=== PATIENT | male | born 1955 | race Caucasian/White ===

== ENCOUNTER 2019-03-16 13:33 | Emergency (ER) | payer MEDICARE ==
[2019-03-16] MEDS ORDERED: ENOXAPARIN SODIUM SQ STA (13:53)
[2019-03-16] MEDS ORDERED: Sodium Chloride 0.9% 1000 ML 1,000 ML IV STA ×2 (13:53→14:34)
--- NOTE | 2019-03-16 14:08 | ERPHSYRPT ---
- History of Present Illness Time Seen by Provider: 03/16/19 14:02 Source: patient Exam Limitations: no limitations Patient Subjective Stated Complaint: Pt states "I have had problems with my legs for awhile but my left leg really really hurts." Triage Nursing Assessment: Pt presented alert and oriented X 3, skin pwd tp ambulates with an upright limp, slow gait, pt left leg is dry, dusky in color, has wounds on krishnamurthy and left foot, pt right leg dry cracking, pt arms dry and cracking. foul smell to pt left foot. Physician History: Pt states "I have had problems with my legs for awhile but my left leg really really hurts." patient has this problem for atleast last 2 years, had angioplasty for both lower extrimities Occurred: other (foe atleast 2 years) Severity of Pain-Max: moderate Severity of Pain-Current: moderate Lower Extremities Pain: leg: left (5x5 cms ulcer on krishnamurthy), 4th toe: left (ulcer on toe), 5th toe: left (ulcer on toe) Allergies/Adverse Reactions: No Known Drug Allergies Allergy (Verified 11/26/15 21:21) Home Medications: No Reportable Medications [No Reported Medications] 03/16/19 [History] Hx Tetanus, Diphtheria Vaccination/Date Given: No Hx Influenza Vaccination/Date Given: No Hx Pneumococcal Vaccination/Date Given: No Immunizations Up to Date: Yes - Review of Systems Constitutional: No Fever, No Chills Eyes: No Symptoms Ears, Nose, & Throat: No Symptoms Respiratory: No Cough, No Dyspnea Cardiac: No Chest Pain, No Edema, No Syncope Abdominal/Gastrointestinal: No Abdominal Pain, No Nausea, No Vomiting, No Diarrhea Genitourinary Symptoms: No Dysuria Musculoskeletal: No Back Pain, No Neck Pain Skin: Cellulitis, Other (foul smell from wound, black eschar on leg wound, ), No Rash Neurological: No Dizziness, No Focal Weakness, No Sensory Changes Psychological: No Symptoms Endocrine: No Symptoms Hematologic/Lymphatic: No Symptoms All Other Systems: Reviewed and Negative - Past Medical History Pertinent Past Medical History: Yes Neurological History: No Pertinent History ENT History: No Pertinent History Cardiac History: Coronary Artery Disease, High Cholesterol, Hypertension Respiratory History: No Pertinent History Endocrine Medical History: No Pertinent History Musculoskeletal History: No Pertinent History GI Medical History: No Pertinent History History: No Pertinent History Psycho-Social History: No Pertinent History Male Reproductive Disorders: No Pertinent History Other Medical History: left leg pain and occlusion july2015 - Past Surgical History Past Surgical History: Yes Other Surgical History: stent in left leg in july 2017 - Social History Smoking Status: Current every day smoker How long have you smoked: years Exposure to second hand smoke: Yes Drug Use: none Patient Lives Alone: No - Nursing Vital Signs Nursing Vital Signs: Initial Vital Signs Temperature 98.1 F 03/16/19 13:39 Pulse Rate 99 H 03/16/19 13:39 Respiratory Rate 03/16/19 13:39 Blood Pressure 174/101 03/16/19 13:39 O2 Sat by Pulse Oximetry 99 03/16/19 13:39 Pain Scale Pain Intensity 0 - Physical Exam General Appearance: alert Eyes, Ears, Nose, Throat Exam: moist mucous membranes Neck Exam: non-tender, supple Cardiovascular/Respiratory Exam: chest non-tender Gastrointestinal/Abdominal Exam: non-tender, guarding Back Exam: normal inspection, No vertebral tenderness Legs Exam: left leg: pain (at krishnamurthy ulcer site) Foot Exam: left foot: infection (4th and 5th toe), soft tissue tenderness Neuro/Tendon Exam: normal sensation, normal motor functions Mental Status Exam: alert, oriented x 3, cooperative Skin Exam: dry, other (foul smelling discharge, 5x5 cms on left krishnamurthy wound, ulcer on 4th and 5th toes left) SpO2: 99 - Course Nursing assessment & vital signs reviewed: Yes - Radiology Exams Chest X-ray Interpretation: Reviewed by me (COPD changes) Ordered Tests: Active Orders 24 hr Category Date Time Status Radiology Therapist STAT Care 03/16/19 13:54 Active EKG-ER Only STAT Care 03/16/19 13:53 Active IV Insertion STAT Care 03/16/19 14:16 Active NPO (ED) STAT Care 03/16/19 14:08 Active CHEST 1 VIEW (PORTABLE) Stat Exams 03/16/19 14:08 Taken BLOOD CULTURE Stat Lab 03/16/19 15:40 Received CBC W DIFF Stat Lab 03/16/19 14:10 Completed CK-Creatinine Phosphokinase Stat Lab 03/16/19 14:10 Completed CMP Stat Lab 03/16/19 14:10 Completed D-DIMER QUANTITATIVE Stat Lab 03/16/19 14:10 Completed Lactic Acid Stat Lab 03/16/19 13:53 Completed NT PRO BNP Stat Lab 03/16/19 14:10 Completed TROPONIN Q3H Lab 03/16/19 14:10 Completed TROPONIN Q3H Lab 03/16/19 17:00 Ordered TROPONIN Q3H Lab 03/16/19 20:00 Ordered TROPONIN Q3H Lab 03/16/19 23:00 Ordered TROPONIN Q3H Lab 03/17/19 02:00 Ordered UA W/RFX UR CULTURE Stat Lab 03/16/19 14:58 Completed Medication Summary Generic Name Dose Route Start Last Admin Trade Name Freq PRN Reason Stop Dose Admin Vancomycin HCl 1 gm in 250 mls @ 167 mls/hr 03/16/19 15:26 03/16/19 15:37 Vancomycin 1gm/ Ns 250ml IV 03/16/19 16:55 167 mls/hr STAT ONE Administration Discontinued Medications Generic Name Dose Route Start Last Admin Trade Name Freq PRN Reason Stop Dose Admin Enoxaparin Sodium 120 mg 03/16/19 13:53 03/16/19 14:17 Enoxaparin Sodium SQ 03/16/19 13:54 120 mg 1XONLY STA Administration Enoxaparin Sodium Confirm 03/16/19 14:16 Enoxaparin Sodium Administered 03/16/19 14:17 Dose 80 mg SQ .STK-MED ONE Enoxaparin Sodium Confirm 03/16/19 14:18 Enoxaparin Sodium Administered 03/16/19 14:19 Dose 80 mg SQ .STK-MED ONE Sodium Chloride 1,000 mls @ 999 mls/hr 03/16/19 13:53 03/16/19 15:03 Sodium Chloride 0.9% 1000 Ml IV 03/16/19 14:53 Infused .Q1H1M STA Infusion Sodium Chloride Confirm 03/16/19 14:16 Sodium Chloride 0.9% 1000 Ml Administered 03/16/19 14:17 Dose 1,000 mls @ ud .ROUTE .STK-MED ONE Sodium Chloride 1,000 mls @ 999 mls/hr 03/16/19 14:34 03/16/19 16:04 Sodium Chloride 0.9% 1000 Ml IV 03/16/19 15:34 Infused .Q1H1M STA Infusion Sodium Chloride Confirm 03/16/19 15:03 Sodium Chloride 0.9% 1000 Ml Administered 03/16/19 15:04 Dose 1,000 mls @ ud .ROUTE .STK-MED ONE Vancomycin HCl Confirm 03/16/19 15:36 Vancomycin 1gm/ Ns 250ml Administered 03/16/19 15:37 Dose 250 mls @ IV .K-MED ONE Lab/Rad Data: Laboratory Result Diagrams 03/16/19 14:10 03/16/19 14:10 Laboratory Results 03/16/19 03/16/19 03/16/19 Range/Units Unknown 14:58 14:10 WBC (4.0-10.5) K/mm3 RBC (4.1-5.6) M/mm3 Hgb (12.5-18.0) gm/dl Hct (42-50) % MCV (78-100) fl MCH (26-32) pg MCHC (32-36) g/dl RDW (11.5-14.0) % Plt Count (150-450) K/mm3 MPV (7.5-11.0) fl Gran % (36.0-66.0) % Eos # (Auto) (0-0.5) Absolute Lymphs (auto) (1.0-4.6) Absolute Monos (auto) (0.0-1.3) Lymphocytes % (24.0-44.0) % Monocytes % (0.0-12.0) % Eosinophils % (0.00-5.0) % Basophils % (0.0-0.4) % Absolute Granulocytes (1.4-6.9) Basophils # (0-0.4) D-Dimer (215-500) ng/mL Sodium (137-145) mmol/L Potassium (3.5-5.1) mmol/L Chloride (98-107) mmol/L Carbon Dioxide (22-30) mmol/L Anion Gap (5-15) MEQ/L BUN (9-20) mg/dL Creatinine (0.66-1.25) mg/dL Estimated GFR ML/MIN Glucose (74-106) mg/dL Hemoglobin A1c 5.49 (4.5-6.0) % Lactic Acid (0.4-2.0) Calcium (8.4-10.2) mg/dL Total Bilirubin (0.2-1.3) mg/dL AST (17-59) U/L ALT (0-50) U/L Alkaline Phosphatase (38-126) U/L Creatine Kinase (55-170) U/L Troponin I < 0.012 (0.000-0.034) ng/mL NT-Pro-B Natriuret Pep (0-900) pg/mL Serum Total Protein (6.3-8.2) g/dL Albumin (3.5-5.0) g/dL Urine Color YELLOW (YELLOW) Urine Appearance CLEAR (CLEAR) Urine pH 6.0 (5-6) Ur Specific Riddle 1.005 (1.005-1.025) Urine Protein NEGATIVE (Negative) Urine Ketones NEGATIVE (NEGATIVE) Urine Blood NEGATIVE (0-5) Dayday/ul Urine Nitrite NEGATIVE (NEGATIVE) Urine Bilirubin NEGATIVE (NEGATIVE) Urine Urobilinogen NEGATIVE (0-1) mg/dL Ur Leukocyte Esterase NEGATIVE (NEGATIVE) Urine WBC (Auto) NONE (0-5) /HPF Urine RBC (Auto) NONE (0-2) /HPF U Hyaline Cast (Auto) 0-2 (0-2) /LPF U Epithel Cells (Auto) NONE (FEW) /HPF Urine Bacteria (Auto) NONE (NEGATIVE) /HPF Urine Mucus (Auto) SLIGHT (NEGATIVE) /HPF Urine Culture Reflexed NO (NO) Urine Glucose 150 (NEGATIVE) mg/dL 03/16/19 03/16/19 03/16/19 Range/Units 14:10 14:10 14:10 WBC 9.7 (4.0-10.5) K/mm3 RBC 3.90 L (4.1-5.6) M/mm3 Hgb 14.1 (12.5-18.0) gm/dl Hct 40.3 L (42-50) % MCV 103.3 H (78-100) fl MCH 36.2 H (26-32) pg MCHC 35.0 (32-36) g/dl RDW 12.9 (11.5-14.0) % Plt Count 154 (150-450) K/mm3 MPV 10.6 (7.5-11.0) fl Gran % 69.4 H (36.0-66.0) % Eos # (Auto) 0.01 (0-0.5) Absolute Lymphs (auto) 1.99 (1.0-4.6) Absolute Monos (auto) 0.93 (0.0-1.3) Lymphocytes % 20.5 L (24.0-44.0) % Monocytes % 9.6 (0.0-12.0) % Eosinophils % 0.1 (0.00-5.0) % Basophils % 0.4 (0.0-0.4) % Absolute Granulocytes 6.76 (1.4-6.9) Basophils # 0.04 (0-0.4) D-Dimer 564 H* (215-500) ng/mL Sodium 136 L (137-145) mmol/L Potassium 3.5 (3.5-5.1) mmol/L Chloride 98 (98-107) mmol/L Carbon Dioxide 24 (22-30) mmol/L Anion Gap 17.3 H (5-15) MEQ/L BUN 14 (9-20) mg/dL Creatinine 0.64 L (0.66-1.25) mg/dL Estimated GFR > 60.0 ML/MIN Glucose 191 H (74-106) mg/dL Hemoglobin A1c (4.5-6.0) % Lactic Acid (0.4-2.0) Calcium 8.8 (8.4-10.2) mg/dL Total Bilirubin 0.80 (0.2-1.3) mg/dL AST 37 (17-59) U/L ALT 22 (0-50) U/L Alkaline Phosphatase 73 (38-126) U/L Creatine Kinase 130 (55-170) U/L Troponin I (0.000-0.034) ng/mL NT-Pro-B Natriuret Pep 403 (0-900) pg/mL Serum Total Protein 7.6 (6.3-8.2) g/dL Albumin 4.0 (3.5-5.0) g/dL Urine Color (YELLOW) Urine Appearance (CLEAR) Urine pH (5-6) Ur Specific Riddle (1.005-1.025) Urine Protein (Negative) Urine Ketones (NEGATIVE) Urine Blood (0-5) Dayday/ul Urine Nitrite (NEGATIVE) Urine Bilirubin (NEGATIVE) Urine Urobilinogen (0-1) mg/dL Ur Leukocyte Esterase (NEGATIVE) Urine WBC (Auto) (0-5) /HPF Urine RBC (Auto) (0-2) /HPF U Hyaline Cast (Auto) (0-2) /LPF U Epithel Cells (Auto) (FEW) /HPF Urine Bacteria (Auto) (NEGATIVE) /HPF Urine Mucus (Auto) (NEGATIVE) /HPF Urine Culture Reflexed (NO) Urine Glucose (NEGATIVE) mg/dL 03/16/19 Range/Units 13:53 WBC (4.0-10.5) K/mm3 RBC (4.1-5.6) M/mm3 Hgb (12.5-18.0) gm/dl Hct (42-50) % MCV (78-100) fl MCH (26-32) pg MCHC (32-36) g/dl RDW (11.5-14.0) % Plt Count (150-450) K/mm3 MPV (7.5-11.0) fl Gran % (36.0-66.0) % Eos # (Auto) (0-0.5) Absolute Lymphs (auto) (1.0-4.6) Absolute Monos (auto) (0.0-1.3) Lymphocytes % (24.0-44.0) % Monocytes % (0.0-12.0) % Eosinophils % (0.00-5.0) % Basophils % (0.0-0.4) % Absolute Granulocytes (1.4-6.9) Basophils # (0-0.4) D-Dimer (215-500) ng/mL Sodium (137-145) mmol/L Potassium (3.5-5.1) mmol/L Chloride (98-107) mmol/L Carbon Dioxide (22-30) mmol/L Anion Gap (5-15) MEQ/L BUN (9-20) mg/dL Creatinine (0.66-1.25) mg/dL Estimated GFR ML/MIN Glucose (74-106) mg/dL Hemoglobin A1c (4.5-6.0) % Lactic Acid 4.4 H (0.4-2.0) Calcium (8.4-10.2) mg/dL Total Bilirubin (0.2-1.3) mg/dL AST (17-59) U/L ALT (0-50) U/L Alkaline Phosphatase (38-126) U/L Creatine Kinase (55-170) U/L Troponin I (0.000-0.034) ng/mL NT-Pro-B Natriuret Pep (0-900) pg/mL Serum Total Protein (6.3-8.2) g/dL Albumin (3.5-5.0) g/dL Urine Color (YELLOW) Urine Appearance (CLEAR) Urine pH (5-6) Ur Specific Riddle (1.005-1.025) Urine Protein (Negative) Urine Ketones (NEGATIVE) Urine Blood (0-5) Dayday/ul Urine Nitrite (NEGATIVE) Urine Bilirubin (NEGATIVE) Urine Urobilinogen (0-1) mg/dL Ur Leukocyte Esterase (NEGATIVE) Urine WBC (Auto) (0-5) /HPF Urine RBC (Auto) (0-2) /HPF U Hyaline Cast (Auto) (0-2) /LPF U Epithel Cells (Auto) (FEW) /HPF Urine Bacteria (Auto) (NEGATIVE) /HPF Urine Mucus (Auto) (NEGATIVE) /HPF Urine Culture Reflexed (NO) Urine Glucose (NEGATIVE) mg/dL - Progress Progress: unchanged Discussed with .: Other ([facility] Hospitalist service. Dr ryan) Counseled pt/family regarding: lab results, diagnosis, need for follow-up, rad results, smoking cessation - Departure Departure Disposition: Transfer ([facility]) Clinical Impression: Peripheral vascular disease, Peripheral vascular disease of lower extremity with ulceration Condition: Stable Critical Care Time: Yes Critical Care Time(excluding separately billable procedures): Critical 30-74 mins Referrals: DOCTOR,NO FAMILY [Primary Care Provider] -
[2019-03-16] MEDS ORDERED: Sodium Chloride 0.9% 1000 ML 1,000 ML ONE ×2 (14:16→15:03)
[2019-03-16] MEDS ORDERED: ENOXAPARIN SODIUM SQ ONE ×2 (14:16→14:18)
[2019-03-16 14:35] LABS: Absolute Neutrophil Ct (ANC) 6.76 (1.4-6.9); BASOPHIL % 0.4 % (0.0-0.4); Basophil (Absolute #) 0.04 (0-0.4); Eosinophil % 0.1 % (0.00-5.0); Eosinophil (Absolute #) 0.01 (0-0.5); Hematocrit 40.3 % (42-50); Hemoglobin 14.1 gm/dl (12.5-18.0); Lymphocyte (Absolute #) 1.99 (1.0-4.6); Lymphocytes % 20.5 % (24.0-44.0); Mean Cell Volume 103.3 fl (78-100); Mean Corpuscular Hemoglobin 36.2 pg (26-32); Mean Platelet Volume 10.6 fl (7.5-11.0); Monocyte (Absolute #) 0.93 (0.0-1.3); Monocytes % 9.6 % (0.0-12.0); Neutrophil % 69.4 % (36.0-66.0); Platelet Count 154 K/mm3 (150-450); Red Cell Distribution Width 12.9 % (11.5-14.0); White Blood Count 9.7 K/mm3 (4.0-10.5)
[2019-03-16 14:48] LABS: ALKALINE PHOSPHATASE 73 U/L (38-126); ANION GAP 17.3 MEQ/L (5-15); BLOOD UREA NITROGEN 14 mg/dL (9-20); CHLORIDE 98 mmol/L (98-107); CK-Creatinine Phosphokinase 130 U/L (55-170); Calcium 8.8 mg/dL (8.4-10.2); Carbon Dioxide 24 mmol/L (22-30); Creatinine 1 0.64 mg/dL (0.66-1.25); Glucose 191 mg/dL (74-106); NT PRO BNP 403 pg/mL (0-900); Potassium 3.5 mmol/L (3.5-5.1); SGOT/AST 37 U/L (17-59); SGPT/ALT 22 U/L (0-50); SODIUM 136 mmol/L (137-145); Total Protein 7.6 g/dL (6.3-8.2)
[2019-03-16 15:18] LABS: Appearance CLEAR (CLEAR); Bilirubin NEGATIVE (NEGATIVE); Blood NEGATIVE Ery/ul (0-5); Glucose 150 mg/dL (NEGATIVE); Hyaline Casts 0-2 /LPF (0-2); Ketones NEGATIVE (NEGATIVE); Leukocyte Esterase NEGATIVE (NEGATIVE); Mucus SLIGHT /HPF (NEGATIVE); Nitrite NEGATIVE (NEGATIVE); Protein,Urine Dip NEGATIVE (Negative); Specific Gravity 1.005 (1.005-1.025); Urobilinogen NEGATIVE mg/dL (0-1)
[2019-03-16] MEDS ORDERED: Vancomycin 1GM/ Ns 250ML*** 1 GM/250 ML IVPB IV ONE (15:26)
[2019-03-16 15:31] VITALS: O2SAT 99
[2019-03-16] MEDS ORDERED: Vancomycin 1GM/ Ns 250ML*** 250 ML IV ONE (15:36)
[2019-03-16 15:53] VITALS: BP 151/93; PULSE 91
--- NOTE | 2019-03-16 20:49 | XRAY ---
Indication: Short of breath. Left leg pain. Comparison: November 26, 2015. Portable chest remains hyperinflated and clear with incidental calcified granulomas. Heart is not enlarged. Bony thorax intact. No new/acute findings.
== END 2019-03-16 16:57 | disposition short-term general hospital (02) ==
LOC: ED 13:33
DX: I73.9 Peripheral vascular disease, unspecified (principal); L97.909 Non-pressure chronic ulcer of unspecified part of unspecified lower leg with unspecified severity; I10 Essential (primary) hypertension; I25.10 Atherosclerotic heart disease of native coronary artery without angina pectoris; E78.00 Pure hypercholesterolemia, unspecified
CPT/HCPCS: 36000; 36415; 71045; 80053; 81001; 82550; 83036; 83605; 83880; 84484; 85025; 85379; 87040; 93005; 93041; 96365; 96372; 96374; 99285; 99291; J1650; J3370

== ENCOUNTER 2019-05-18 18:06 | Emergency (ER) | payer MEDICARE ==
[2019-05-18 18:21] VITALS: BP 129/77; PULSE 99; O2SAT 98
--- NOTE | 2019-05-18 18:43 | ERPHSYRPT ---
- History of Present Illness Time Seen by Provider: 05/18/19 18:39 Source: patient Exam Limitations: no limitations Patient Subjective Stated Complaint: pt here for wound check , he had amputation of toes to left foot a week ago and now has drainage Triage Nursing Assessment: pt alert, resp easy, skin w/d/p. has coban dressing to foot with old drainage on of dressing Physician History: pt here for wound check , he had amputation of toes to left foot a week ago and now has drainage. 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 which is managed by Dr Erwin(Podiatry) Allergies/Adverse Reactions: No Known Drug Allergies Allergy (Verified 05/18/19 18:21) Home Medications: No Reportable Medications [No Reported Medications] 03/16/19 [History] Hx Tetanus, Diphtheria Vaccination/Date Given: No Hx Influenza Vaccination/Date Given: No Hx Pneumococcal Vaccination/Date Given: No Immunizations Up to Date: Yes Travel Risk - International Travel Have you traveled outside of the country in past 3 weeks: No Have you or anyone close to you been diagnosed with or: No Do your reside in a community with a known COVID-19 case?: Yes If Yes where:: [place] - Coronavirus Screening Has patient experienced Coronavirus symptoms: No - Review of Systems Constitutional: No Fever, No Chills Eyes: No Symptoms Ears, Nose, & Throat: No Symptoms Respiratory: No Cough, No Dyspnea Cardiac: No Chest Pain, No Edema, No Syncope Abdominal/Gastrointestinal: No Abdominal Pain, No Nausea, No Vomiting, No Diarrhea Genitourinary Symptoms: No Dysuria Musculoskeletal: No Back Pain, No Neck Pain Skin: Other (recent amputation of left foot metatarsals), No Rash Neurological: No Dizziness, No Focal Weakness, No Sensory Changes Psychological: No Symptoms Endocrine: No Symptoms All Other Systems: Reviewed and Negative - Past Medical History Pertinent Past Medical History: Yes Neurological History: No Pertinent History ENT History: No Pertinent History Cardiac History: Coronary Artery Disease, High Cholesterol, Hypertension Respiratory History: No Pertinent History Endocrine Medical History: No Pertinent History Musculoskeletal History: No Pertinent History GI Medical History: No Pertinent History History: No Pertinent History Psycho-Social History: No Pertinent History Male Reproductive Disorders: No Pertinent History Other Medical History: left leg pain and occlusion july2015 - Past Surgical History Past Surgical History: Yes Other Surgical History: stent in left leg in july 2017 - Social History Smoking Status: Former smoker How long have you smoked: years Exposure to second hand smoke: Yes Drug Use: none Patient Lives Alone: No - Nursing Vital Signs Nursing Vital Signs: Initial Vital Signs Temperature 98.1 F 05/18/19 18:13 Pulse Rate 99 H 05/18/19 18:13 Respiratory Rate 18 05/18/19 18:13 Blood Pressure 129/77 05/18/19 18:13 O2 Sat by Pulse Oximetry 98 05/18/19 18:13 Pain Scale Pain Intensity 0 - Physical Exam General Appearance: alert Eyes, Ears, Nose, Throat Exam: moist mucous membranes Neck Exam: non-tender, supple Cardiovascular/Respiratory Exam: chest non-tender, normal breath sounds, regular rate/rhythm, no respiratory distress Gastrointestinal/Abdominal Exam: non-tender, guarding Back Exam: normal inspection, No vertebral tenderness Foot Exam: left foot: other (s/p metatarsals surgical amputation, black eschar) Neuro/Tendon Exam: normal sensation, normal motor functions Mental Status Exam: alert, oriented x 3, cooperative Skin Exam: normal color, warm, dry SpO2: 98 - Course Nursing assessment & vital signs reviewed: Yes Ordered Tests: Active Orders 24 hr Category Date Time Status Wound Care STAT Care 05/18/19 18:26 Active - Progress Progress: improved Progress Note: 05/18/19 18:42 new dressing applied - Departure Departure Disposition: Home Clinical Impression: Peripheral vascular disease of lower extremity with ulceration Condition: Stable Critical Care Time: No Referrals: CAMPOS HARDING MD [Primary Care Provider] - Additional Instructions: Discharge/Care Plan VANESA WEST was seen on 05/18/19 in the Emergency Room. The patient was counseled regarding Diagnosis,Lab results, Imaging studies, need for follow up and when to return to the Emergency Room. Prescriptions given: Discharge Note I have spoken with the patient and/or caregivers. I have explained the patient' s condition, diagnosis and treatment plan based on the information available to me at this time. I have answered the patient's and/or caregiver's questions and addressed any concerns. The patient and/or caregivers have as good understanding of the patient's diagnosis, condition and treatment plan as can be expected at this point. The vital signs have been stable. The patient's condition is stable and appropriate for discharge from the emergency department. The patient will pursue further outpatient evaluation with the primary care physician or other designated or consulting physician as outlined in the discharge instructions. The patient and/or caregivers are agreeable to this plan of care and follow-up instructions have been explained in detail. The patient and/or caregivers have received these instruction. The patient/and or caregivers are aware that any significant change in condition or worsening of symptoms should prompt an immediate return to this or the closest emergency department or call 911.
== END 2019-05-18 18:49 | disposition home or self-care (01) ==
LOC: ED 18:06
DX: I73.9 Peripheral vascular disease, unspecified (principal); Z48.00 Encounter for change or removal of nonsurgical wound dressing; L97.529 Non-pressure chronic ulcer of other part of left foot with unspecified severity; Z89.422 Acquired absence of other left toe(s)
CPT/HCPCS: 99283

== ENCOUNTER 2019-05-26 15:53 | Emergency (ER) | payer MEDICARE ==
[2019-05-26 16:11] VITALS: BP 108/62; PULSE 65; O2SAT 100
--- NOTE | 2019-05-26 16:20 | ERPHSYRPT ---
- History of Present Illness Time Seen by Provider: 05/26/19 16:05 Source: patient Exam Limitations: no limitations Patient Subjective Stated Complaint: Pt had left foot toes and partial foot amputated a couple of weeks ago, pt was here last week for it bleeding and it was wrapped and sent home, pt returns today due to it has begun bleeding again Triage Nursing Assessment: Pt brought to the ER via EMS for a wound check and dressing change, vitals wnl, doppler used and pulses heard, rates pain 6/10, surgical incision has clotted blood and is looking ok per Dr. Chin, pt has appt tomorrow with his surgeon, no other complaints at this time Physician History: This is a 63-year-old gentleman who underwent a left foot amputation at the level of the metatarsals approximately 2 weeks ago. Patient had a revascularization procedure prior to that. Patient was seen here approximately 1 week ago and there was a circular area of eschar at the amputation flap site. Dressings were changed and the patient was sent home. He followed up with his vascular surgeon who evaluated the wound approximately 4 to 5 days ago and told the patient that that looked as expected and told to keep the dressing in place for a week and to follow-up. The patient is not on any antibiotics at this time. Patient was brought in by ambulance service because of blood seeping through his dressing. Is on pain medication. Patient has a follow-up appointment scheduled with his vascular surgeon tomorrow afternoon. Patient restarted Plavix several days ago after his visit with the vascular surgeon. Patient is afebrile Quality: painful Severity: mild Location: feet (Left foot) Associated Symptoms: change in skin texture (Left foot amputation site, flap) Allergies/Adverse Reactions: No Known Drug Allergies Allergy (Verified 05/26/19 16:11) Home Medications: Aspirin EC 81 mg [Ecotrin 81 mg] 81 mg PO DAILY 05/26/19 [History] Clopidogrel Bisulfate 75 mg [PLAVIX 75 MG Tablet] 75 mg PO DAILY 05/26/19 [History] Sucralfate 1 gm PO QID 05/26/19 [History] Hx Tetanus, Diphtheria Vaccination/Date Given: No Hx Influenza Vaccination/Date Given: No Hx Pneumococcal Vaccination/Date Given: No Travel Risk - International Travel Have you traveled outside of the country in past 3 weeks: No Have you or anyone close to you been diagnosed with or: No Do your reside in a community with a known COVID-19 case?: Yes If Yes where:: [place] - Coronavirus Screening Has patient experienced Coronavirus symptoms: No - Review of Systems Constitutional: No Symptoms Eyes: No Symptoms Ears, Nose, & Throat: No Symptoms Respiratory: No Symptoms Cardiac: No Symptoms Abdominal/Gastrointestinal: No Symptoms Genitourinary Symptoms: No Symptoms Musculoskeletal: No Symptoms Skin: Other (Blood clots and tenderness at surgical amputation site.) Neurological: No Symptoms Psychological: No Symptoms Endocrine: No Symptoms Hematologic/Lymphatic: No Symptoms Immunological/Allergic: No Symptoms All Other Systems: Reviewed and Negative - Past Medical History Pertinent Past Medical History: Yes Neurological History: No Pertinent History ENT History: No Pertinent History Cardiac History: Coronary Artery Disease, High Cholesterol, Hypertension Respiratory History: No Pertinent History Endocrine Medical History: No Pertinent History Musculoskeletal History: No Pertinent History GI Medical History: No Pertinent History History: No Pertinent History Psycho-Social History: No Pertinent History Male Reproductive Disorders: No Pertinent History Other Medical History: left leg pain and occlusion july2015 - Past Surgical History Past Surgical History: Yes Musculoskeletal: Amputation Other Surgical History: stent in left leg in july 2017 - Social History Smoking Status: Former smoker How long have you smoked: years Exposure to second hand smoke: No Drug Use: none Patient Lives Alone: No - Nursing Vital Signs Nursing Vital Signs: Initial Vital Signs Temperature 96.6 F 05/26/19 15:54 Pulse Rate 65 05/26/19 15:54 Blood Pressure 108/62 05/26/19 15:54 O2 Sat by Pulse Oximetry 100 05/26/19 15:54 Pain Scale Pain Intensity 6 - Physical Exam General Appearance: no apparent distress, alert, anxiety Eye Exam: PERRL/EOMI, eyes nml inspection Ears, Nose, Throat Exam: normal ENT inspection, moist mucous membranes Neck Exam: normal inspection, non-tender, supple, full range of motion Respiratory Exam: airway intact, No chest tenderness, No respiratory distress Cardiovascular Exam: regular rate/rhythm, normal heart sounds, normal peripheral pulses Gastrointestinal/Abdomen Exam: No tenderness Rectal Exam: not done Back Exam: normal inspection, normal range of motion, No CVA tenderness Extremity Exam: pelvis stable, tenderness, other (There is audible arterial pulses in the posterior tibia and dorsalis pedis arteries on the left foot.) Neurologic Exam: alert, oriented x 3, cooperative, block mechanic II-XII nml as tested Skin Exam: other (The left foot flap site shows some necrotic tissue at the amputation site. There is associated blood clot as well. There is mild odor as well. Patient has sensation and feels pain when cleaning the wound.) Lymphatic Exam: No adenopathy SpO2 Interpretation: normal SpO2: 100 O2 Delivery: Room Air - Course Nursing assessment & vital signs reviewed: Yes - Progress Progress: improved, re-examined Counseled pt/family regarding: diagnosis, need for follow-up - Departure Departure Disposition: Home Clinical Impression: Encounter for postoperative wound check, Dressing change or removal, surgical wound Condition: Stable Critical Care Time: No Referrals: CAMPOS HARDING MD [Primary Care Provider] - Additional Instructions: Take your pain medicine as prescribed. Keep your appointment with your vascular surgeon tomorrow.
[2019-05-26] MEDS ORDERED: Rocephin 1000 MG INJ IM ONE (16:30)
[2019-05-26] MEDS ORDERED: Levofloxacin 500 MG Tablet PO ONE (16:30)
[2019-05-26] MEDS ORDERED: Rocephin 1000 MG INJ ONE (16:31)
[2019-05-26] MEDS ORDERED: Levofloxacin 500 MG Tablet ONE (16:31)
== END 2019-05-26 17:07 | disposition home or self-care (01) ==
LOC: ED 15:53
DX: Z48.01 Encounter for change or removal of surgical wound dressing (principal); Z89.432 Acquired absence of left foot; I10 Essential (primary) hypertension; E78.00 Pure hypercholesterolemia, unspecified; I25.10 Atherosclerotic heart disease of native coronary artery without angina pectoris
CPT/HCPCS: 96372; 99284; J0696; A9270-GY